=== PATIENT | male | born 1955 | race Caucasian/White ===

== ENCOUNTER → 2023-06-07 08:44 | Outpatient (REF) | payer MEDICARE, OTHER, SELFPAY ==
[2023-06-07 09:14] LABS: % Basophils 1.4 % (0-2); % Eosinophils 7.5 % (0-6); % Immature Granulocytes 0.7 % (0-0.5); % Lymphocytes 27.9 % (20.5-51.1); % Monocytes 8.6 % (1.7-9.3); % Neutrophils 53.9 % (42.2-75.2); Absolute Basophils 0.1 10^3/uL (0-0.2); Absolute Eosinophils 0.5 10^3/uL (0-0.7); Absolute Immature Granulocytes 0.1 10^3/uL (0-0.05); Absolute Monocytes 0.6 10^3/uL (0.1-0.6); Absolute Neutrophils 3.9 10^3/uL (1.4-6.5); Hematocrit 47.9 % (39.0-52.0); Hemoglobin 16.2 g/dL (13.0-18.0); Mean Corp Hgb Conc. 33.8 g/dL (33.0-37.0); Mean Corpuscular Hgb 29.9 pg (27.0-31.0); Mean Corpuscular Volume 88.5 fL (80.0-94.0); Nucleated Red Blood Cells % 0 % (-); Platelet Count 194 10^3/uL (130-400); Red Blood Cell Count 5.41 10^6/uL (4.70-6.10); Red Cell Dist. Width 13.2 % (11.5-14.5); White Blood Cell Count 7.2 10^3/uL (4.8-10.8)
[2023-06-07 09:19] LABS: Urine Albumin Negative (Neg - Trace); Urine Bilirubin Negative (Negative); Urine Character Clear (Clear); Urine Color Yellow; Urine Glucose Negative (Negative); Urine Ketone Negative (Negative); Urine Leukocyte Negative (Negative); Urine Nitrite Negative (Negative); Urine Occult Blood Negative (Negative); Urine Specific Gravity 1.015 (<1.030); Urine Urobilinogen Negative (Neg - 1+); Urine pH 6.5 (5.0-9.0)
[2023-06-07 10:09] LABS: ALT (SGPT) 19 U/L (0-50); AST (SGOT) 27 U/L (17-59); Albumin 4.7 g/dl (3.5-5.0); Alkaline Phosphatase 86 U/L (38-126); Blood Urea Nitrogen 16 mg/dl (9-20); Calcium 9.4 mg/dl (8.4-10.2); Carbon Dioxide 30 mmol/L (22-30); Chloride 103 mmol/L (98-107); Glucose 92 mg/dl (70-99); HDL Cholesterol 40 mg/dl; LDL Cholesterol, Calculated 107 mg/dl; Potassium 4.3 mmol/L (3.5-5.1); Sodium 139 mmol/L (135-145); Total Bilirubin 0.8 mg/dl (0.2-1.3); Total Cholesterol 189 mg/dl (50-199); Total Protein 8.1 g/dl (6.3-8.2); Triglyceride 213 mg/dl (10-149); Very Low Density Lipoprotein 42 mg/dl (0-30); eGFR > 60.00
[2023-06-07 10:35] LABS: PSA, Total - Screen 0.29 ng/ml (0.0-4.0)
== END ==
LOC: REG 08:44
PROVIDERS: ATTENDING PHYSICIAN Internal Medicine
DX: E78.5 Hyperlipidemia, unspecified (principal); R94.6 Abnormal results of thyroid function studies; Z00.00 Encounter for general adult medical examination without abnormal findings; Z12.5 Encounter for screening for malignant neoplasm of prostate
CPT/HCPCS: 36415; 80053; 80061; 81003; 84439; 84443; 85025; G0103

== ENCOUNTER → 2023-11-04 13:15 | Outpatient (REF) | payer MEDICARE, OTHER, SELFPAY | LOC: HWRAD 13:15 | PROVIDERS: ATTENDING PHYSICIAN Internal Medicine; FAMILY PHYSICIAN Internal Medicine | DX: R10.9 Unspecified abdominal pain (principal); Z87.442 Personal history of urinary calculi | CPT/HCPCS: 74176 ==

== ENCOUNTER → 2024-05-12 11:12 | Outpatient (REF) | payer MEDICARE, OTHER, SELFPAY | LOC: HWRAD 11:12 | PROVIDERS: ATTENDING PHYSICIAN Physician Assistant; FAMILY PHYSICIAN Internal Medicine | DX: R91.8 Other nonspecific abnormal finding of lung field (principal) | CPT/HCPCS: 71250 ==

== ENCOUNTER → 2024-06-06 06:35 | Outpatient (REF) | payer MEDICARE, OTHER, SELFPAY ==
[2024-06-06 07:15] LABS: % Eosinophils 5.1 % (0-6); % Immature Granulocytes 1.6 % (0-0.5); % Lymphocytes 21.4 % (20.5-51.1); % Monocytes 9.7 % (1.7-9.3); % Neutrophils 61.2 % (42.2-75.2); Absolute Basophils 0.1 10^3/uL (0-0.2); Absolute Eosinophils 0.4 10^3/uL (0-0.7); Absolute Immature Granulocytes 0.1 10^3/uL (0-0.05); Absolute Lymphocytes 1.5 10^3/uL (1.2-3.4); Absolute Monocytes 0.7 10^3/uL (0.1-0.6); Absolute Neutrophils 4.3 10^3/uL (1.4-6.5); Hematocrit 48.7 % (39.0-52.0); Hemoglobin 16.5 g/dL (13.0-18.0); Mean Corp Hgb Conc. 33.9 g/dL (33.0-37.0); Mean Corpuscular Hgb 30.2 pg (27.0-31.0); Mean Corpuscular Volume 89.2 fL (80.0-94.0); Mean Platelet Volume 9.1 fL (7.4-10.4); Nucleated Red Blood Cells % 0 % (-); Platelet Count 204 10^3/uL (130-400); Red Blood Cell Count 5.46 10^6/uL (4.70-6.10); Red Cell Dist. Width 13.3 % (11.5-14.5)
[2024-06-06 07:35] LABS: Urine Albumin 1+ (Neg - Trace); Urine Bilirubin Negative (Negative); Urine Character Clear (Clear); Urine Color Yellow; Urine Glucose Negative (Negative); Urine Ketone Negative (Negative); Urine Leukocyte Negative (Negative); Urine Nitrite Negative (Negative); Urine Occult Blood Negative (Negative); Urine Urobilinogen Negative (Neg - 1+)
[2024-06-06 07:42] LABS: ALT (SGPT) 22 U/L (0-50); AST (SGOT) 26 U/L (17-59); Alkaline Phosphatase 84 U/L (38-126); Blood Urea Nitrogen 14 mg/dl (9-20); Carbon Dioxide 30 mmol/L (22-30); Chloride 101 mmol/L (98-107); Glucose 93 mg/dl (70-99); HDL Cholesterol 49 mg/dl; LDL Cholesterol, Calculated 124 mg/dl; Potassium 4.2 mmol/L (3.5-5.1); Sodium 140 mmol/L (135-145); Total Bilirubin 1.1 mg/dl (0.2-1.3); Total Cholesterol 196 mg/dl (50-199); Total Protein 8.2 g/dl (6.3-8.2); Triglyceride 118 mg/dl (10-149); Very Low Density Lipoprotein 23 mg/dl (0-30); eGFR > 60.00
[2024-06-06 08:14] LABS: PSA, Total - Screen 0.31 ng/ml (0.0-4.0); TSH Reflex To Free T4 6.23 uIU/ml (0.47-4.68)
[2024-06-06 08:45] LABS: Urine Mucus Few; Urine Red Blood Cell 0-2 /HPF (0-2); Urine Squamous Cell 0-2 /LPF (Few); Urine White Cell 0-2 /HPF (0-5)
[2024-06-06 08:46] LABS: Free T4 1.18 ng/dl (0.78-2.19)
== END ==
LOC: REG 06:35
PROVIDERS: ATTENDING PHYSICIAN Internal Medicine
DX: E78.00 Pure hypercholesterolemia, unspecified (principal); E03.9 Hypothyroidism, unspecified; Z12.5 Encounter for screening for malignant neoplasm of prostate
CPT/HCPCS: 36415; 80053; 80061; 81003; 81015; 84439; 84443; 85025; G0103

== ENCOUNTER 2024-09-26 06:26 | Day surgery (SDC) | payer MEDICARE, OTHER, SELFPAY | END 2024-09-26 15:38 | disposition home or self-care (01) | LOC: GI 06:26 | PROVIDERS: ATTENDING PHYSICIAN Student in an Organized Health Care Education/Training Program; FAMILY PHYSICIAN Internal Medicine | DX: Z12.11 Encounter for screening for malignant neoplasm of colon (principal); K57.30 Diverticulosis of large intestine without perforation or abscess without bleeding; K64.0 First degree hemorrhoids; K62.1 Rectal polyp; K63.5 Polyp of colon; K63.9 Disease of intestine, unspecified; Z86.0100 Personal history of colon polyps, unspecified | CPT/HCPCS: 45385; 45380; 88305 ==

== ENCOUNTER → 2024-10-03 07:04 | Outpatient (REF) | payer MEDICARE, OTHER, SELFPAY | LOC: RCS 07:04 | PROVIDERS: ATTENDING PHYSICIAN Internal Medicine Cardiovascular Disease; FAMILY PHYSICIAN Internal Medicine | DX: I42.9 Cardiomyopathy, unspecified (principal) | CPT/HCPCS: 93306 ==

== ENCOUNTER → 2024-10-09 10:39 | Outpatient (REF) | payer MEDICARE, OTHER, SELFPAY ==
[2024-10-09 11:45] LABS: Urine Character Clear (Clear)
[2024-10-09 11:56] LABS: Urine Squamous Cell 0-2 /LPF (Few)
[2024-10-09 11:57] LABS: Urine White Cell 0-2 /HPF (0-5)
[2024-10-09 12:14] LABS: ALT (SGPT) 31 U/L (0-50); AST (SGOT) 31 U/L (17-59); Albumin 5.1 g/dl (3.5-5.0); Alkaline Phosphatase 57 U/L (38-126); HDL Cholesterol 55 mg/dl; LDL Cholesterol, Calculated 100 mg/dl; Total Protein 8.4 g/dl (6.3-8.2); Very Low Density Lipoprotein 19 mg/dl (0-30)
[2024-10-09 12:29] LABS: Free T3 3.87 pg/ml (2.77-5.27)
[2024-10-09 12:43] LABS: TSH 3.97 uIU/ml (0.47-4.68)
== END ==
LOC: RCS 10:39
PROVIDERS: ATTENDING PHYSICIAN Internal Medicine Cardiovascular Disease; FAMILY PHYSICIAN Internal Medicine
DX: I44.7 Left bundle-branch block, unspecified (principal); I42.9 Cardiomyopathy, unspecified; Z86.79 Personal history of other diseases of the circulatory system; E78.00 Pure hypercholesterolemia, unspecified; E03.9 Hypothyroidism, unspecified; R80.9 Proteinuria, unspecified; I70.0 Atherosclerosis of aorta
CPT/HCPCS: 36415; 78452; 80061; 80076; 81003; 81015; 84439; 84443; 84481; 86376; 93017; A9500; J2785

== ENCOUNTER → 2024-10-16 06:23 | Outpatient (REF) | payer MEDICARE, OTHER, SELFPAY | LOC: RAD 06:23 | PROVIDERS: ATTENDING PHYSICIAN Internal Medicine | DX: R55 Syncope and collapse (principal); I25.10 Atherosclerotic heart disease of native coronary artery without angina pectoris; I42.8 Other cardiomyopathies | CPT/HCPCS: 93880 ==

== ENCOUNTER → 2024-12-14 11:27 | Outpatient (REF) | payer MEDICARE, OTHER, SELFPAY ==
[2024-12-14 12:59] LABS: Urine Character Clear (Clear)
[2024-12-14 13:51] LABS: Urine Red Blood Cell 0-2 /HPF (0-2); Urine Squamous Cell 0-2 /LPF (Few); Urine White Cell 0-2 /HPF (0-5)
== END ==
LOC: REG 11:27
PROVIDERS: ATTENDING PHYSICIAN Internal Medicine
DX: R55 Syncope and collapse (principal); R82.90 Unspecified abnormal findings in urine; E78.00 Pure hypercholesterolemia, unspecified
CPT/HCPCS: 81003; 81015

== ENCOUNTER → 2024-12-15 07:21 | Outpatient (REF) | payer MEDICARE, OTHER, SELFPAY ==
[2024-12-15 08:35] LABS: HDL Cholesterol 49 mg/dl; LDL Cholesterol, Calculated 80 mg/dl; Very Low Density Lipoprotein 26 mg/dl (0-30)
== END ==
LOC: REG 07:21
PROVIDERS: ATTENDING PHYSICIAN Internal Medicine
DX: E78.00 Pure hypercholesterolemia, unspecified (principal)
CPT/HCPCS: 36415; 80061

== ENCOUNTER → 2025-02-14 08:42 | Outpatient (REF) | payer MEDICARE, OTHER, SELFPAY ==
[2025-02-14 09:36] LABS: Urine Character Clear (Clear)
[2025-02-14 09:42] LABS: Urine Squamous Cell 0-2 /LPF (Few)
[2025-02-14 09:43] LABS: Urine Red Blood Cell 0-2 /HPF (0-2); Urine White Cell 0-2 /HPF (0-5)
== END ==
LOC: REG 08:42
PROVIDERS: ATTENDING PHYSICIAN Internal Medicine
DX: R80.9 Proteinuria, unspecified (principal)
CPT/HCPCS: 81003; 81015; 87086

== ENCOUNTER → 2025-02-20 07:55 | Outpatient (REF) | payer MEDICARE, OTHER, SELFPAY ==
[2025-02-20 08:43] LABS: 24 Hour Urine Total Volume 1500 ml
== END ==
LOC: REG 07:55
PROVIDERS: ATTENDING PHYSICIAN Internal Medicine
DX: R80.9 Proteinuria, unspecified (principal)
CPT/HCPCS: 81050; 84156